=== PATIENT | female | born 1945 | race Caucasian/White ===

== ENCOUNTER 2023-05-28 18:13 | Emergency (ER) | payer OTHER, SELFPAY ==
[2023-05-28] VITALS (16 sets, daily range): BP systolic 100–138; BP diastolic 48–65; PULSE 70–84; RESP 14; TEMP 36.3; O2SAT 88–98; BMI 29.8
--- NOTE | 2023-05-28 18:57 | ED.GENADULT ---
HPI - General Adult General Chief complaint: Laceration/Wound Stated complaint: wounds on feet Time Seen by Provider: 05/28/23 18:56 History of Present Illness HPI narrative: patient is from [facility] in [place]. patient has wounds on the feet that concerned of infection, swelling, and has some lymph edema. over the past week has had steady cognitive decline which is concerning to the facility . BS 325 done by EMS. hx of DM on insulin 78-year-old woman presenting to the emergency department via EMS with concern of foot wounds, lymphedema, altered mental status. Does have a history of decubitus ulcer on the left heel over the last few years that has improved and then opened again over time. Daughter thinks probably February it opened up again and may have close again temporarily now open again. Does have custodial assessing in her [facility] facility doing dressing changes and assisting with lymphedema and was noted to have foul odor and recommended for evaluation. The complicating cares is Ms. Childers cognitive and physical decline over the last month plus. She has been moved to a higher skilled unit (Memory Care) and does not seem to be improving. Has not had fever. Underlying history of diabetes. One month ago approximately daughter notes how she was ambulatory. Now requires Mark lift. Seems to be having pain all over even with light touch. Has been holding her abdomen. Daughter does not think she has actually had a bowel movement in 2 weeks. She has become incontinent of urine as well. Seems to be increasingly in persistent pain. Heels are not offloaded a or cushion. On physical exam is apparent that the heel of the left compression stocking has been cut away. Daughter reveals later that there is likely to be a conversation tomorrow with consideration of hospice. Reviewing Face sheet paperwork from [facility] Past medical includes Rosacea, hypothyroid, vitamin B12 deficiency, gastric ulcer, spinal stenosis L5-S1, diaphragmatic hernia, headaches/migraine, fibromyalgia, chronic neck and back pain, allergic rhinitis, brachial plexus/thoracic outlet syndrome, depression, anxiety, dyslipidemia, vitamin-D deficiency, osteopenia, reactive airway to dust, fructose intolerance, constipation, lymphedema, dysphagia, physical deconditioning, type 2 diabetes Past surgical includes total knees, spinal fusion of the cervical spine C5-C6, irritable bowel, dementia Medications-- Include escitalopram, furosemide, Humalog, potassium, levothyroxine, vitamin B12, pregabalin, spironolactone, furosemide, Lantus, melatonin, memantine, mirtazapine, quetiapine, rosuvastatin, Vanicream, a number of p.r.n. some but does not include opiate Related Data Home Medications Medication Instructions Recorded Confirmed Humalog KwikPen Insulin 49 units subcut .am 05/28/23 05/28/23 Humalog KwikPen Insulin 62 units subcut .lunch 05/28/23 05/28/23 escitalopram oxalate 5 mg tablet 5 mg PO DAILY 05/28/23 05/28/23 furosemide 40 mg tablet 40 mg PO DAILY 05/28/23 05/28/23 furosemide 80 mg tablet 80 mg PO DAILY 05/28/23 05/28/23 insulin glargine 65 unit subcut HS 05/28/23 05/28/23 insulin lispro 65 unit subcut .dinner 05/28/23 05/28/23 levothyroxine 75 mcg capsule 75 mcg PO DAILY 05/28/23 05/28/23 melatoinin 1 mg PO HS 05/28/23 05/28/23 memantine 10 mg tablet 20 mg PO QPM 05/28/23 05/28/23 mirtazapine 15 mg tablet 15 mg PO QHS 05/28/23 05/28/23 mvi b12 1,000 mcg PO DAILY 05/28/23 05/28/23 potassium chloride 10 mEq 10 meq PO DAILY 05/28/23 05/28/23 tablet,extended release (Klor-Con) pregabalin 75 mg capsule (Lyrica) 75 mg PO DAILY 05/28/23 05/28/23 quetipine 50 mg PO HS 05/28/23 05/28/23 rosuvastatin 20 mg tablet (Crestor) 20 mg PO DAILY 05/28/23 05/28/23 spironolactone 25 mg tablet 25 mg PO DAILY 05/28/23 05/28/23 (Aldactone) Allergies Allergy/AdvReac Type Severity Reaction Status Date / Time demeclocycline Allergy Mild GI Verified 05/28/23 18:38 intolerance erythromycin base Allergy Mild gi Verified 05/28/23 18:38 intolerance tizanidine Allergy Mild GI Verified 05/28/23 18:38 intolerance atorvastatin Allergy Unknown Verified 05/28/23 18:38 sulfamethoxazole Allergy Unknown Verified 05/28/23 18:38 [From Sulfamethoxazole-Trimethoprim] trimethoprim Allergy Unknown Verified 05/28/23 18:38 [From Sulfamethoxazole-Trimethoprim] dust mite pollen Allergy Mild breathing Uncoded 05/28/23 18:38 and sinus problems fructose Allergy Mild intolerance Uncoded 05/28/23 18:38 mold Allergy Mild breathing Uncoded 05/28/23 18:38 and sinus problems trees Allergy Mild breathing Uncoded 05/28/23 18:38 and sinus problems Review of Systems Status of ROS: Reports: 6 or more systems reviewed and unremarkable except as noted in History and below [facility] Medical History (Updated 06/13/23 @ 00:00 by Background Daemon) Irritable bowel syndrome ?K58.9 - Irritable bowel syndrome without diarrhea (ICD-10) Dementia ?F03.90 - Unspecified dementia, unspecified severity, without behavioral disturbance, psychotic disturbance, mood disturbance, and anxiety (ICD-10) Physical deconditioning ?R53.81 - Other malaise (ICD-10) Polypharmacy ?Z79.899 - Other fci (current) drug therapy (ICD-10) Dysphagia ?R13.10 - Dysphagia, unspecified (ICD-10) Lymphedema ?I89.0 - Lymphedema, not elsewhere classified (ICD-10) Constipation ?K59.00 - Constipation, unspecified (ICD-10) 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 - Hereditary fructose intolerance (ICD-10) Reactive airway disease ?J45.909 - Unspecified asthma, uncomplicated (ICD-10) Airway disease due to other specific organic dusts ?J66.8 - Airway disease due to other specific organic dusts (ICD-10) Osteopenia ?M85.80 - Other specified disorders of bone density and structure, unspecified site (ICD-10) Vitamin D deficiency ?E55.9 - Vitamin D deficiency, unspecified (ICD-10) Hyperlipidemia ?E78.5 - Hyperlipidemia, unspecified (ICD-10) Anxiety ?F41.9 - Anxiety disorder, unspecified (ICD-10) Depression ?F32.A - Depression, unspecified (ICD-10) Thoracic outlet syndrome ?G54.0 - Brachial plexus disorders (ICD-10) Brachial plexus disorders ?G54.0 - Brachial plexus disorders (ICD-10) Allergic rhinitis ?J30.9 - Allergic rhinitis, unspecified (ICD-10) Back pain ?M54.9 - Dorsalgia, unspecified (ICD-10) Neck pain ?M54.2 - Cervicalgia (ICD-10) Fibromyalgia ?M79.7 - Fibromyalgia (ICD-10) Migraine ?G43.909 - Migraine, unspecified, not intractable, without status migrainosus (ICD-10) Headache ?R51.9 - Headache, unspecified (ICD-10) Hiatal hernia ?K44.9 - Diaphragmatic hernia without obstruction or gangrene (ICD-10) Diaphragmatic hernia ?K44.9 - Diaphragmatic hernia without obstruction or gangrene (ICD-10) Spinal stenosis ?M48.00 - Spinal stenosis, site unspecified (ICD-10) Gastric ulcer ?K25.9 - Gastric ulcer, unspecified as acute or chronic, without hemorrhage or perforation (ICD-10) Anemia ?D64.9 - Anemia, unspecified (ICD-10) Vitamin B12 deficiency ?E53.8 - Deficiency of other specified B group vitamins (ICD-10) Hypothyroidism ?E03.9 - Hypothyroidism, unspecified (ICD-10) Rosacea ?L71.9 - Rosacea, unspecified (ICD-10) Social History Smoking Status: Never smoker How often do you have a drink containing alcohol: never AUDIT-C Alcohol total score: 0 Non-prescribed substance use: denies use Exam Narrative: Exam Narrative: Lying semi recumbent in bed with her eyes closed we the room. She does open her eyes to conversation. Seems apprehensive. Oropharynx is moist. Head peers to be atraumatic. Lungs are clear she does actually help with this auscultate or a effort. Needs assistance to sit. Abdomen is protuberant soft and appears to be diffusely tender. Does have present bowel sounds. Heart in regular rate and rhythm is distant. Attends are in place. Appear to be urine soaked. Examination of the lower extremities --is dressed in light compression stockings and overwrapped with Neoprene compression. Removing all of this is painful. The right leg with diffuse lower leg and foot erythema and mild calor. There is a nickel sized blood blister present on the distal great toe. There is a 1-1/2 by a less than a cm irregular shaped blood blister presumably decubitus ulcer initiation on the heel posteriorly as well. The left leg with some erythema at the distal great toe consistent with initiation of skin breakdown. Is soft. Gauze dressing has been applied over Telfa over the heel. Removing this shows a linear horizontal marked erythema consistent with cutting in of this gauze wrap, possibly distal aspect of the neoprene wraps, over the dorsum of the foot. On the posterior heel as a silver dollar sized ulceration also with purpling/darkening and on the upper aspect a pencil eraser sized spot of whiteness. No drainage currently. Generally the left lower leg also is erythematous and with mild calor. Const: Vital Signs, click to edit/add: Vital Signs - 24 hr 05/28/23 18:21 05/28/23 19:20 05/28/23 20:14 Temperature 97.4 F L Pulse Rate 84 Pulse Rate [Pulse Oximeter] 79 Respiratory Rate 14 Blood Pressure Blood Pressure [Ri ght Upper Arm] 132/65 Pulse Oximetry 95 95 88 [facility] Room [facility] 05/28/23 20:30 05/28/23 20:32 05/28/23 20:33 Temperature Pulse Rate 78 78 77 Pulse Rate [Pulse Oximeter] Respiratory Rate Blood Pressure 138/64 Blood Pressure [Ri ght Upper Arm] Pulse Oximetry 96 98 97 [facility] 05/28/23 21:02 05/28/23 21:18 05/28/23 21:30 Temperature Pulse Rate 75 73 Pulse Rate [Pulse Oximeter] Respiratory Rate Blood Pressure 138/65 Blood Pressure [Ri ght Upper Arm] Pulse Oximetry 95 94 [facility]xygen Delivery [facility] 05/28/23 21:33 05/28/23 22:00 05/28/23 22:02 Temperature Pulse Rate 74 73 72 Pulse Rate [Pulse Oximeter] Respiratory Rate Blood Pressure 101/50 L 115/50 L Blood Pressure [Ri ght Upper Arm] Pulse Oximetry 94 90 89 [facility]xygen [facility] 05/28/23 22:30 05/28/23 22:32 05/28/23 23:00 Temperature Pulse Rate 71 72 72 Pulse Rate [Pulse Oximeter] Respiratory Rate Blood Pressure 100/48 L Blood Pressure [Ri ght Upper Arm] Pulse Oximetry 88 90 90 [facility]xygen [facility] 05/28/23 23:02 Temperature Pulse Rate 70 Pulse Rate [Pulse Oximeter] Respiratory Rate Blood Pressure 111/52 L Blood Pressure [Ri ght Upper Arm] Pulse Oximetry 91 Oxygen Delivery [facility] Documenting provider has reviewed patient's vital signs: yes Course Vital Signs Vital signs: Initial Vital Signs Temperature 97.4 F L 05/28/23 18:21 Temperature Source Temporal Artery Scan 05/28/23 18:21 Pulse Rate 79 05/28/23 18:21 Respiratory Rate 14 05/28/23 18:21 Blood Pressure 132/65 05/28/23 18:21 Blood Pressure Mean 87 05/28/23 18:21 Blood Pressure Position Sitting 05/28/23 18:21 Pulse Oximetry 95 05/28/23 18:21 Oxygen Delivery Method Room Air 05/28/23 18:21 Vital Signs Temperature 97.4 F L 05/28/23 18:21 Pulse Rate 79 05/28/23 18:21 Respiratory Rate 14 05/28/23 18:21 Blood Pressure 132/65 05/28/23 18:21 Pulse Oximetry 95 05/28/23 18:21 Oxygen Delivery Method Room Air 05/28/23 18:21 Temperature 97.4 F L 05/28/23 18:21 Pulse Rate 70 05/28/23 23:02 Respiratory Rate 14 05/28/23 18:21 Blood Pressure 111/52 L 05/28/23 23:02 Pulse Oximetry 91 05/28/23 23:02 Oxygen Delivery Method Room Air 05/28/23 18:21 Medical Decision Making MDM Narrative Medical decision making narrative: Unclear reason for cognitive decline. Concern of abdominal a fullness/distension with no bowel movement for 2 weeks. Will collect baseline labs. Clearly has decubitus ulcers. Will assess left heel for osteomyelitis. Blood sugars are elevated today. Daughter thinks will need some pain management to get through imaging. I have ordered morphine low-dose. On re-evaluation seemed comfortable enough that I thought we could hold off on the morphine to not further depress mental status. Imaging was reviewed by me. Radiology over-reads as below A single view of the chest was acquired FINDINGS: TUBES AND LINES: None. HEART AND MEDIASTINUM: The heart size is normal. The mediastinal contour appears normal for patient age. LUNGS AND PLEURAL SPACES: Given low lung volumes, the lungs appear to be clear. The pleural spaces are normal OSSEOUS STRUCTURES: Age-appropriate appearance. No acute focal finding. IMPRESSION: Noted due to low lung volumes. However, no definite acute focal findings Left calcaneus 2 views. Permanently recorded images are archived. COMPARISON: None. FINDINGS: No acute fracture. Alignment is normal. No erosive changes or periosteal reaction identified. Plantar and posterior calcaneal enthesophytes. No soft tissue gas or radiopaque foreign body. IMPRESSION: No radiographic evidence for osteomyelitis. CT abdomen and pelvis without contrast. COMPARISON: None. FINDINGS: Limited evaluation of the intra-abdominal solid organs without IV contrast. Lower chest: Bibasilar linear and reticular opacities likely related to atelectasis and/or scarring. Liver: Normal in size and attenuation. No suspicious masses. Gallbladder and bile ducts: No stones or inflammation. No biliary dilatation. Pancreas: Unremarkable. No mass or inflammation. Spleen: Normal in size. No masses. Adrenal glands: Normal in size. No nodules. Kidneys: 5 millimeter stone in the mid right ureter with proximal mild hydroureteronephrosis. No left hydronephrosis or hydroureter. No left renal stones identified. GI tract: No bowel obstruction. Small hiatal hernia. Appendix is within normal limits. Vasculature: Abdominal aorta is normal in caliber. Lymph nodes: No lymphadenopathy. Peritoneum/Abdominal Wall: Unremarkable. No sign of mass or infiltration. No free air or significant free fluid. Pelvis: Status post hysterectomy. Bladder is unremarkable. Bones: Unremarkable for age. IMPRESSION: 5 millimeter stone in the right mid ureter with proximal mild hydroureteronephrosis. Labs are notable for Sodium of 131, potassium of 2.7, blood glucose of 303, creatinine of 2.1 White count is not elevated. CRP of 5.3 Replacing potassium. Low most likely secondary to furosemide. Have not yet managed to obtain urinalysis. For order pending cath urinalysis. More critical in light of findings of 5 mm stone in the right ureter. Anticipating initiate antibiotics for potential skin infection but would really like to get urinalysis prior to this. Discussed all findings above with daughter. She has understandable concerns in going [facility] her [facility] without more regular cares. They are hoping that can activate hospice and then can receive more care in current facility. Will be looking for heel cups and other ways to relieve pressure. Urinalysis primarily with findings I think related to this ureteral stone. Will be discussing with urology. Ashley not communicating very well makes it a little difficult to determine when this ureteral stone may have dropped. It sounds as though about a week ago may have had some indication of increased intermittent abdominal pain. Discussed findings in urine and CT with [facility] on-call. They will be following up with further recommendations. Would anticipate stone passage. Urinalysis not clearly infected but urine culture will be pending. Following collection of urine was initiated on Rocephin. We have done some potassium replacement. Would like recheck end of the week. Will double potassium supplementation at this point. On later review I see the blood cultures were not requested. These will be done prior to departure. Ashley has been sleeping during time in the emergency department after receiving morphine. She appears more comfortable. Pressures also have been little softer around 110 systolic generally. We have placed Mepilex dressings. Would anticipate discharge with more supplies. Further recommendations per home health wound care who are coming to the memory care unit apparently 3 times a week. Would like dressings changed daily for the next week rinsed with normal saline. Must have legs significantly elevated in her recliner and heels offloaded at all times when at rest. I have called to the [facility] and they are willing to [facility] her [facility]. Will need to arrange for transportation. Lab Data Lab results reviewed: Yes I reviewed the patient's lab results Labs: Lab Results 05/28/23 05/28/23 05/28/23 Range/Units 20:00 20:00 22:50 WBC 10.53 (4.50-11.00) K/uL RBC 4.56 (4.00-5.20) m/uL Hgb 13.8 (12.0-16.0) gm/dL Hct 42.1 (33.0-51.0) % MCV 92 (80-100) fL MCH 30 (26-34) pg MCHC 33 (32-36) gm/dL RDW Coeff of Rita 15.8 H (11.5-15.5) % Plt Count 244 (140-440) K/uL Neut % (Auto) 74.7 H (42.0-72.0) % Lymph % (Auto) 10.8 L (20-44) % [place] % (Auto) 12.4 H (0.0-11.0) % Eos % (Auto) 1.1 (0.0-7.0) % Baso % (Auto) 0.2 (0.0-3.0) % Neut # (Auto) 7.90 H (1.7-7.0) K/uL Lymph # (Auto) 1.10 (0.90-2.90) K/uL [place] # (Auto) 1.30 H (0.00-0.90) K/UL Eos # (Auto) 0.12 (0.00-0.50) K/uL Baso # (Auto) 0.02 (0.00-0.30) K/uL Abs Immat Gran (auto) 0.08 (0.00-0.30) K/uL Imm/Tot Granulo (auto) 0.8 % Sodium 131 L (135-149) mmol/L Potassium 2.7 L* (3.6-5.1) mmol/L Chloride 83 L (96-114) mmol/L Carbon Dioxide 36 H (20-32) mmol/L Anion Gap 12 (7-15) mEq/L BUN 31 H (7-30) mg/dL Creatinine 2.1 H (0.5-1.5) mg/dL Estimated Creat Clear 22.16 Estimated GFR 24 ml/min Glucose 303 H (60-115) mg/dL Calcium 8.8 (8.4-10.6) mg/dL Magnesium 2.8 H (1.5-2.6) mg/dL Total Bilirubin 1.9 H (0.1-1.5) mg/dL Direct Bilirubin 0.5 (0.0-0.5) mg/dL AST 36 H (12-35) U/L ALT 34 (4-35) U/L Alkaline Phosphatase 173 H (40-150) U/L C-Reactive Protein 5.3 H (0.5-1.0) mg/dL NT-Pro-B Natriuret Pep 801 Cancelled pg/mL Total Protein 7.5 (6.0-8.3) g/dL Albumin 3.9 (3.3-5.0) g/dL TSH 2.840 (0.270-4.20) uIU/mL Urine Color Yellow (Yellow) Urine Appearance Cloudy A (Clear) Urine pH 7.0 (5.0-8.5) Ur Specific [place] 1.020 (1.000-1.030) Urine Protein 2+ A (Negative) Urine Glucose (UA) Trace A (Negative) Urine Ketones Negative (Negative) Urine Blood 3+ A (Negative) Urine Nitrite Negative (Negative) Urine Bilirubin Negative (Negative) Urine Urobilinogen 4.0 A (0.2-1.0) Ur Leukocyte Esterase 1+ A (Negative) Urine RBC 25-50 A (0-2) Urine WBC 5-10 A (0-5) Ur Squamous Epith Cells Few (None-Few) Urine Bacteria Many A (None) SARS-CoV-2 (PCR) Negative SARS-CoV-2 (Negative) Influenza Type A (PCR) Negative PCR FLU A (Negative) Influenza Type B (PCR) Negative PCR FLU B (Negative) ECG Data Attestation: I personally reviewed and interpreted this ECG as follows: (Looks to be in a normal sinus rhythm. Rate of 74.) Discharge Plan Discharge Clinical Impression: Decubitus ulcer of heel, bilateral, Ureteral colic, Dementia, Right ureteral stone, Hypokalemia Patient Disposition: Home w/ Parent or Adult Condition: Stable Additional Instructions: Please take copies of your labs with you. You are being sent with more Mepilex dressings. Change these every other day rinsing with normal saline and replace with new dressing. It is important that legs are elevated at rest including in the recliner. Heels must be offloaded at all times during rest. Avoid placing weight on heels. I would anticipate you being seen by your wound care provider on Friday with further recommendations to follow. We have replaced some of your potassium here with a total of 25 mEq oral and 10 mEq IV. Until further recommendations or 1 week duration whichever is 1st, double your potassium to 20 mEq daily. Please recheck potassium at the end of the week. Further recommendations from your medical care team. There is a kidney stone in the right mid ureter. Karen I spoke with Dr. Zee with [facility]. Anticipate a call from them to arrange next steps in care/give further recommendations. In the meantime I would like you to take daily Flomax which might help with some of the cramping. Flomax 0.4 mg p.o. daily for 7 days or until suspect stone passage. Also [place] for worse pain; be aware that has an opiate this is additionally sedating. [place] 5/325 1-2 tabs p.o. t.i.d. p.r.n. I would typically dispense 10 tabs. If possible strain urine over this next week. A urine culture is pending here. You did receive Rocephin 1 g. I would like you to continue cephalexin at 500 mg 3 times daily for 8 days. While I am not convinced that there is a urinary tract infection; that the white cells we see in there are more inflammatory from the ureteral stone, the cephalexin should provide some prophylaxis at least in your urinary tract as well as provide coverage for your heel wounds. Blood cultures are also pending. Prescriptions: No Action escitalopram oxalate 5 mg tablet 5 mg PO DAILY furosemide 40 mg tablet 40 mg PO DAILY furosemide 80 mg tablet 80 mg PO DAILY Humalog KwikPen Insulin 49 units subcut .am potassium chloride [Klor-Con 10] 10 mEq tablet extended release 10 meq PO DAILY levothyroxine 75 mcg capsule 75 mcg PO DAILY mvi b12 1,000 mcg PO DAILY pregabalin [Lyrica] 75 mg capsule 75 mg PO DAILY spironolactone [Aldactone] 25 mg tablet 25 mg PO DAILY Humalog KwikPen Insulin 62 units subcut .lunch insulin lispro [Humalog KwikPen Insulin] 65 unit subcut .dinner insulin glargine [Lantus Solostar U-100 Insulin] 65 unit subcut HS melatoinin 1 mg PO HS memantine 10 mg tablet 20 mg PO QPM mirtazapine 15 mg tablet 15 mg PO QHS quetipine 50 mg PO HS rosuvastatin [Crestor] 20 mg tablet 20 mg PO DAILY Follow Up/Referrals: Sara Peters MD [Primary Care Provider] - Stand Alone Forms: [employer] Info Instructions
--- NOTE | 2023-05-28 19:19 | CRLHL7_ITS ---
For Patients: As a result of the Cures Act, medical imaging exams and procedure reports are released immediately into your electronic medical record. You may view this report before your referring provider. If you have questions, please contact your health care provider. INDICATION: Rule out osteomyelitis. TECHNIQUE: Left calcaneus 2 views. Permanently recorded images are archived. COMPARISON: None. FINDINGS: No acute fracture. Alignment is normal. No erosive changes or periosteal reaction identified. Plantar and posterior calcaneal enthesophytes. No soft tissue gas or radiopaque foreign body. IMPRESSION: No radiographic evidence for osteomyelitis. Dictated by Kyle Paredes MD @ 05/28/2023 8:59:56 PM (Electronically Signed)
--- NOTE | 2023-05-28 19:20 | CRLHL7_ITS ---
For Patients: As a result of the Cures Act, medical imaging exams and procedure reports are released immediately into your electronic medical record. You may view this report before your referring provider. If you have questions, please contact your health care provider. INDICATION: Cough and fever COMPARISON: None TECHNIQUE: A single view of the chest was acquired FINDINGS: TUBES AND LINES: None. HEART AND MEDIASTINUM: The heart size is normal. The mediastinal contour appears normal for patient age. LUNGS AND PLEURAL SPACES: Given low lung volumes, the lungs appear to be clear. The pleural spaces are normal OSSEOUS STRUCTURES: Age-appropriate appearance. No acute focal finding. IMPRESSION: Noted due to low lung volumes. However, no definite acute focal findings Dictated by Moshe Ramos MD @ 05/28/2023 8:52:11 PM (Electronically Signed)
--- NOTE | 2023-05-28 19:20 | CRLHL7_ITS ---
For Patients: As a result of the Century Cures Act, medical imaging exams and procedure reports are released immediately into your electronic medical record. You may view this report before your referring provider. If you have questions, please contact your health care provider. INDICATION: Distension, pain, no bowel movements. TECHNIQUE: CT abdomen and pelvis without contrast. COMPARISON: None. FINDINGS: Limited evaluation of the intra-abdominal solid organs without IV contrast. Lower chest: Bibasilar linear and reticular opacities likely related to atelectasis and/or scarring. Liver: Normal in size and attenuation. No suspicious masses. Gallbladder and bile ducts: No stones or inflammation. No biliary dilatation. Pancreas: Unremarkable. No mass or inflammation. Spleen: Normal in size. No masses. Adrenal glands: Normal in size. No nodules. Kidneys: 5 millimeter stone in the mid right ureter with proximal mild hydroureteronephrosis. No left hydronephrosis or hydroureter. No left renal stones identified. GI tract: No bowel obstruction. Small hiatal hernia. Appendix is within normal limits. Vasculature: Abdominal aorta is normal in caliber. Lymph nodes: No lymphadenopathy. Peritoneum/Abdominal Wall: Unremarkable. No sign of mass or infiltration. No free air or significant free fluid. Pelvis: Status post hysterectomy. Bladder is unremarkable. Bones: Unremarkable for age. IMPRESSION: 5 millimeter stone in the right mid ureter with proximal mild hydroureteronephrosis. Please note that all CT scans at this facility use dose modulation, iterative reconstruction, and/or weight-based dosing when appropriate to reduce radiation dose to as low as reasonably achievable. Dictated by Vishal Redd MD @ 05/28/2023 9:54:16 PM (Electronically Signed)
[2023-05-28] MEDS: 0.9 % SODIUM CHLORIDE 1000 ml 1,000 ML IV (20:08)
--- NOTE | 2023-05-28 20:14 | ED.NURSE ---
pt arouses to voice easily. often has eyes closed. pt c/o pain with cares. pt incont large amount of urine. assist of 2 to change pt in bed. pt not moving well in bed. rosina sling from memory care given to daughter. daughter also took pt's dirty clothes and leg wraps. pillows placed under bilat legs to keep heels off bed.
[2023-05-28 20:24] LABS: Basophils Absolute Auto 0.02 K/uL (0.00-0.30); Basophils Percent Auto 0.2 % (0.0-3.0); Eosinophils Absolute Auto 0.12 K/uL (0.00-0.50); Eosinophils Percent Auto 1.1 % (0.0-7.0); Hematocrit 42.1 % (33.0-51.0); Hemoglobin* 13.8 gm/dL (12.0-16.0); Immature Granulocytes Abs Auto 0.08 K/uL (0.00-0.30); Immature Granulocytes Pct Auto 0.8 %; Lymphocytes Percent Auto 10.8 % (20-44); Mean Corpuscular HGB Conc 33 gm/dL (32-36); Mean Corpuscular Hemoglobin 30 pg (26-34); Mean Corpuscular Volume 92 fL (80-100); Monocytes Percent Auto 12.4 % (0.0-11.0); Neutrophils Percent Auto 74.7 % (42.0-72.0); Platelet Count* 244 K/uL (140-440); RDW Coefficient of Variation % 15.8 % (11.5-15.5); Red Blood Count 4.56 m/uL (4.00-5.20); White Blood Count* 10.53 K/uL (4.50-11.00)
[2023-05-28 20:29] LABS: Slide Review Reflex No
[2023-05-28 20:38] LABS: Albumin* 3.9 g/dL (3.3-5.0); Chloride* 83 mmol/L (96-114); Sodium* 131 mmol/L (135-149)
[2023-05-28 20:41] LABS: Creatinine* 2.1 mg/dL (0.5-1.5); Est. Creatinine Clearance* 22.16; Estimated Glomerular Filt Rate 24 ml/min
[2023-05-28 20:42] LABS: Alanine Aminotransferase* 34 U/L (4-35); Alkaline Phosphatase* 173 U/L (40-150); Anion Gap 12 mEq/L (7-15); Aspartate Amino Transferase* 36 U/L (12-35); Bilirubin Direct* 0.5 mg/dL (0.0-0.5); Bilirubin Total* 1.9 mg/dL (0.1-1.5); Blood Urea Nitrogen* 31 mg/dL (7-30); Calcium* 8.8 mg/dL (8.4-10.6); Carbon Dioxide* 36 mmol/L (20-32); Glucose* 303 mg/dL (60-115); Magnesium* 2.8 mg/dL (1.5-2.6); Total Protein* 7.5 g/dL (6.0-8.3)
[2023-05-28 20:45] LABS: C Reactive Protein* 5.3 mg/dL (0.5-1.0); Potassium* 2.7 mmol/L (3.6-5.1)
[2023-05-28 20:54] LABS: NT Pro B Type NatriureticPept* 801 pg/mL
[2023-05-28 21:00] LABS: PCR FLU A Negative PCR FLU A (Negative); PCR FLU B Negative PCR FLU B (Negative)
[2023-05-28 21:01] LABS: SARS PCR* Negative SARS-CoV-2 (Negative)
[2023-05-28] MEDS: POTASSIUM BICARB 25 MEQ EFFERVESCENT TAB PO (21:43)
[2023-05-28] MEDS: MORPHINE 4 MG/ML INJ IVP (21:43)
[2023-05-28] MEDS: POTASSIUM CHLORIDE 10 MEQ/100 ML PIGGYBACK 100 MEQ IVPB (21:56)
[2023-05-28 22:48] LABS: Appearance Urine Cloudy (Clear); Bilirubin Urine Negative (Negative); Blood Urine 3+ (Negative); Color Urine Yellow (Yellow); Glucose Urine Trace (Negative); Ketones Urine Negative (Negative); Leukocyte Esterase Urine 1+ (Negative); Nitrite Urine Negative (Negative); Protein Urine 2+ (Negative)
--- NOTE | 2023-05-28 22:49 | ED.NURSE ---
14Fr red rubber straight cath placed under sterile fashion. Pt raw and red at meatus. Pt tolerated procedure well. Urine specimen collected and sent to lab for analysis. 750mL cloudy, foul smelling urine drained from catheter site.
[2023-05-28 23:12] LABS: Bacteria Urine Many; RBC Urine 25-50 (0-2); Squamous Epithelial Cell Urine Few (None-Few)
--- NOTE | 2023-05-28 23:21 | ED.NURSE ---
pt right heal had a 2 cm by 3 cm unstageable pressure injury, Mepilex padded bandage applied. left heal had a 3 cm by 3 cm unstageable pressure injury what has scant sanguinous drainage. rinsed with 10ml of normal saline before Mepilex applied
[2023-05-29] MEDS: cefTRIAXone 1 GM in 0.9 % SODIUM CHLORIDE Mini-bag 100 ML IVPB (00:18)
== END 2023-05-29 02:02 | disposition home or self-care (01) ==
PROVIDERS: Emergency Provider Family Medicine; PCP Pediatrics
DX: L89.629 Pressure ulcer of left heel, unspecified stage (principal); L89.619 Pressure ulcer of right heel, unspecified stage; N20.2 Calculus of kidney with calculus of ureter; E87.6 Hypokalemia
CPT/HCPCS: 36415; 71045; 73650; 74176; 80048; 80076; 81001; 83735; 83880; 84443; 85025; 86140; 87040; 87086; 87186; 87631; 93005; 94761; 96365; 96366; 96375; 99284; 99285; A9270; J0696; J2270; J3480; J7030

== ENCOUNTER 2023-05-29 01:55 | Outpatient (CLI) | payer OTHER, SELFPAY | END 2023-05-29 01:56 | disposition home or self-care (01) | LOC: AMB 06-26 14:32 | PROVIDERS: PCP Pediatrics; Visit Provider Family Medicine | DX: L89.629 Pressure ulcer of left heel, unspecified stage (principal); L89.619 Pressure ulcer of right heel, unspecified stage; F03.90 Unspecified dementia, unspecified severity, without behavioral disturbance, psychotic disturbance, mood disturbance, and anxiety | CPT/HCPCS: A0425; A0428 ==